=== PATIENT | male | born 1960 | race African-American/Black ===

== ENCOUNTER 2020-11-29 23:06 | Inpatient (IN) | payer BC, OTHER ==
[2020-11-29 23:16] VITALS: BMI 31.5
[2020-11-29] MEDS ORDERED: NITROGLYCERIN SUBLINGUAL 1/150 0.4 MG TAB SL ONE ×2 (23:45→23:51)
[2020-11-29] MEDS ORDERED: amLODIPine BESYLATE 5 MG TABLET (FP) PO ONE (23:51)
[2020-11-29 23:52] LABS: BASO % 0.7 % (0-2.0); EOS % 3.1 % (0-4.5); HEMOGLOBIN 14.6 GM/dL (11.7-16.9); LYMPH % 27.6 % (8-40); MCH 34.3 pg (25.7-33.7); MCHC 34.8 g/dl (32.0-35.9); MEAN CELL VOLUME 98.7 fl (80-96); MEAN PLT VOLUME 10.3 fl (7.5-11.1); NEUT % 61.6 % (42.8-82.8); PLATELET COUNT 115 K/MM3 (134-434); RBC 4.26 M/mm3 (4.00-5.60); RDW 13.7 % (11.9-15.9); WHITE BLOOD COUNT 6.5 K/mm3 (4.0-10.0)
[2020-11-29] MEDS ORDERED: LOSARTAN POTASSIUM 50 MG TABLET PO ONE (23:52)
[2020-11-29] MEDS ORDERED: ACETAMINOPHEN 1000 MG/100 ML VIAL (NON FORMULARY) IVPB ONE (23:52)
[2020-11-29] MEDS ORDERED: amLODIPine BESYLATE 10 MG TABLET (FP) PO ONE (23:52)
[2020-11-29] MEDS ORDERED: ACETAMINOPHEN INJECTION 100 ML IVPB ONE (23:54)
[2020-11-30 00:16] LABS: CHLORIDE 109 mmol/L (98-107); SODIUM 141 mmol/L (136-145)
[2020-11-30 00:18] LABS: CALCIUM 8.6 mg/dL (8.5-10.1)
[2020-11-30 00:19] LABS: ANION GAP 4 MMOL/L (8-16); CO2 27 mmol/L (21-32); GLUCOSE,RANDOM 98 mg/dL (74-106); MAGNESIUM 2.2 mg/dL (1.8-2.4)
[2020-11-30 00:22] LABS: CREATININE 0.8 mg/dL (0.55-1.3); SGOT/AST 13 U/L (15-37); SGPT/ALT 19 U/L (13-61)
[2020-11-30 00:23] LABS: BILIRUBIN,TOTAL 0.4 mg/dL (0.2-1); TOT PROT 7.2 g/dl (6.4-8.2)
[2020-11-30 00:25] LABS: ALK PHOS 61 U/L (45-117)
[2020-11-30] MEDS ORDERED: LOSARTAN POTASSIUM 50 MG TABLET ONE (00:34)
[2020-11-30] MEDS ORDERED: amLODIPine BESYLATE 5 MG TABLET (FP) ONE ×2 (00:34→11:09)
[2020-11-30 01:51] LABS: URINE APPEARANCE CLEAR; URINE BILIRUBIN NEGATIVE (NEGATIVE); URINE COLOR YELLOW; URINE GLUCOSE (UA) NEGATIVE (NEGATIVE); URINE KETONE NEGATIVE (NEGATIVE); URINE LEUK ESTERASE NEGATIVE (NEGATIVE); URINE NITRITE NEGATIVE (NEGATIVE); URINE PROTEIN NEGATIVE (NEGATIVE)
[2020-11-30] MEDS ORDERED: HYDROCHLOROTHIAZIDE 12.5 MG CAPSULE (FP) PO ONE ×2 (02:19→12:00)
[2020-11-30] MEDS ORDERED: HYDROCHLOROTHIAZIDE 25 MG TABLET (FP) ONE ×2 (02:44→11:34)
[2020-11-30 05:46] LABS: BASO % 0.5 % (0-2.0); EOS % 3.4 % (0-4.5); HEMOGLOBIN 14.2 GM/dL (11.7-16.9); LYMPH % 30.1 % (8-40); MCH 34.8 pg (25.7-33.7); MCHC 35.5 g/dl (32.0-35.9); MEAN PLT VOLUME 10.3 fl (7.5-11.1); MONO % 6.5 % (3.8-10.2); NEUT % 59.5 % (42.8-82.8); PLATELET COUNT 114 K/MM3 (134-434); RBC 4.09 M/mm3 (4.00-5.60); RDW 13.4 % (11.9-15.9); WHITE BLOOD COUNT 6.4 K/mm3 (4.0-10.0)
[2020-11-30 06:00] LABS: CHLORIDE 110 mmol/L (98-107); SODIUM 140 mmol/L (136-145)
[2020-11-30 06:04] LABS: ANION GAP 4 MMOL/L (8-16); BLOOD UREA NITROGEN 13.2 mg/dL (7-18); CALCIUM 8.2 mg/dL (8.5-10.1); CO2 25 mmol/L (21-32); GLUCOSE,RANDOM 102 mg/dL (74-106); MAGNESIUM 2.1 mg/dL (1.8-2.4)
[2020-11-30 06:07] LABS: CHOLESTEROL 169 mg/dL (50-200); CREATININE 0.9 mg/dL (0.55-1.3)
[2020-11-30 06:08] LABS: TRIGLYCERIDES 94 mg/dL (0-150)
[2020-11-30 06:09] LABS: HDL CHOLESTEROL 41 mg/dL (40-60); LDL CHOLESTEROL (ONLY SJRH) 109 mg/dL (5-100)
[2020-11-30] MEDS ORDERED: ISOSORBIDE MONONITRATE 60 MG TAB.SR.24H (FP) PO SCH ×2 (10:00)
[2020-11-30] MEDS ORDERED: SERTRALINE HCL 50 MG TABLET (FP) PO SCH (10:00)
[2020-11-30] MEDS ORDERED: amLODIPine BESYLATE 5 MG TABLET (FP) PO SCH (10:00)
[2020-11-30] MEDS ORDERED: ENOXAPARIN NA (PORCINE) 40 MG/0.4 ML DISP.SYRIN SQ SCH (10:00)
[2020-11-30] MEDS ORDERED: ENOXAPARIN NA (PORCINE) 40 MG/0.4 ML DISP.SYRIN SQ ONE (11:10)
[2020-11-30] MEDS ORDERED: SERTRALINE HCL 50 MG TABLET (FP) ONE (11:10)
[2020-11-30] MEDS ORDERED: ISOSORBIDE MONONITRATE 60 MG TAB.SR.24H (FP) PO ONE (11:10)
[2020-11-30 14:10] VITALS: PULSE 75; TEMP 98.1
[2020-11-30 17:59] VITALS: BP 165/95
[2020-11-30] MEDS ORDERED: LISINOPRIL 20 MG TABLET PO SCH (22:00)
[2020-12-01] MEDS ORDERED: HYDROCHLOROTHIAZIDE 25 MG TABLET (FP) PO SCH (10:00)
[2020-12-01] MEDS ORDERED: HYDROCHLOROTHIAZIDE 12.5 MG CAPSULE (FP) PO SCH (10:00)
== END 2020-11-30 14:35 | disposition home or self-care (01) | DRG 305 ==
LOC: JER 23:06 → JERBED 11-30 00:53
PROVIDERS: ADMIT Internal Medicine; ATTEND Internal Medicine
DX: I16.0 Hypertensive urgency (principal); I10 Essential (primary) hypertension; F41.8 Other specified anxiety disorders; E66.9 Obesity, unspecified; Z68.31 Body mass index [BMI] 31.0-31.9, adult; F10.10 Alcohol abuse, uncomplicated; Z91.14 Patient's other noncompliance with medication regimen
CPT/HCPCS: 36415; 71045-TC-FY; 80048; 80053; 80061; 81003; 82550; 83036; 83721; 83735; 84484; 85025; 87086; 93005; 93010; 99285-25; C9803; G0378; J0131; U0003; U0005